=== PATIENT | male | born 1990 | race Caucasian/White ===

== ENCOUNTER 2020-02-12 14:29 | Emergency (ER) | payer SELFPAY ==
[~2020-02-12] VITALS: Ht 180.3 cm; Wt 117.0 kg
[2020-02-12 14:46] VITALS: BP 126/88
== END 2020-02-12 15:16 | disposition home or self-care (01) ==
LOC: ED 15:10
DX: R51.9 Headache, unspecified (principal); R11.2 Nausea with vomiting, unspecified
CPT/HCPCS: 99281

== ENCOUNTER 2020-06-17 10:32 | Emergency (ER) | payer SELFPAY ==
[~2020-06-17] VITALS: Ht 180.3 cm; Wt 110.0 kg
[2020-06-17 10:36] VITALS: BP 146/86
--- NOTE | 2020-06-17 11:09 | NUR ---
EMT AT BEDSIDE PLACING SPILNT
[2020-06-17] MEDS ORDERED: IBUPROFEN 800 MG TABLET PO ONE (11:30)
[2020-06-17] MEDS ORDERED: IBUPROFEN 800 MG TABLET ONE (11:36)
--- NOTE | 2020-06-17 11:45 | NUR ---
PT WALKED OUT SELF WITH STEADY GAIT. RX GIVEN. IF S&S RETURN WORSEN TO ER
== END 2020-06-17 11:55 | disposition home or self-care (01) ==
LOC: ED 11:30
DX: S62.334A Displaced fracture of neck of fourth metacarpal bone, right hand, initial encounter for closed fracture (principal); M79.89 Other specified soft tissue disorders; X58.XXXA Exposure to other specified factors, initial encounter; Y93.89 Activity, other specified; Y92.89 Other specified places as the place of occurrence of the external cause; Y99.8 Other external cause status
CPT/HCPCS: 29125; 99283

== ENCOUNTER 2020-09-06 09:19 | Emergency (ER) | payer SELFPAY ==
[~2020-09-06] VITALS: Ht 177.8 cm; Wt 116.2 kg
[2020-09-06 09:26] VITALS: BP 143/94
--- NOTE | 2020-09-06 10:39 | NUR ---
NO ANSWER TO RM
--- NOTE | 2020-09-06 10:47 | NUR ---
NO ANSWER TO RM
--- NOTE | 2020-09-06 10:56 | NUR ---
NO ANSWER TO ROOM
== END 2020-09-06 12:42 | disposition left against medical advice (07) ==
LOC: ED 12:13
DX: R49.1 Aphonia (principal); Z53.21 Procedure and treatment not carried out due to patient leaving prior to being seen by health care provider